=== PATIENT | male | born 1935 | race Caucasian/White ===

== ENCOUNTER 2025-01-21 18:45 | Emergency (ER) | payer OTHER ==
[~2025-01-21] VITALS: Ht 167.6 cm; Wt 54.9 kg
[2025-01-21 18:55] VITALS: BP 111/64; TEMP 98.4
[2025-01-21] MEDS ORDERED: ACETAMINOPHEN ES 500 MG TABLET ONE (20:05)
[2025-01-21] MEDS: ACETAMINOPHEN ES 500 MG TABLET PO ONE (20:49)
[2025-01-21 23:48] VITALS: O2SAT 97
== END 2025-01-21 23:48 ==
LOC: ER 19:13
DX: M79.661 Pain in right lower leg (principal); E78.5 Hyperlipidemia, unspecified; F03.90 Unspecified dementia, unspecified severity, without behavioral disturbance, psychotic disturbance, mood disturbance, and anxiety
CPT/HCPCS: 99284; 93971; A4223